=== PATIENT | male | born 1980 | race African-American/Black ===

== ENCOUNTER 2018-05-20 01:49 | Inpatient (IN) | payer OTHER ==
[~2018-05-20] VITALS: Ht 188 cm; Wt 125.2 kg
[~2018-05-20 01:49] MED LIST: AMOXICILLIN875 M1 PO; AMOXIL500 MG PO; BACTRIM DS TAB1 EACH PO; IBUPROFEN800 M1 PO; PREDNISONE 20MG20 MG PO
--- NOTE | 2018-05-20 02:07 | ED UPPER/LOWER EXTREMITY COMPL ---
History of Present Illness General Chief Complaint: Upper Extremity Problem Stated Complaint: "LT ARM WOUND CHECK,RT HAND SWELLENING" Source: patient Exam Limitations: no limitations Vital Signs & Intake/Output Vital Signs & Intake/Output Vital Signs Date Time Temp Pulse Resp B/P B/P Pulse O2 O2 Flow FiO2 Mean Ox Delivery Rate 05/20 0205 100.4 97 18 124/75 96 Room Air Allergies Coded Allergies: NO KNOWN ALLERGIES (09/09/13) Reconcile Medications Amoxicillin 875 MG TABLET 1 TAB PO BID ABSCESS Amoxicillin (Amoxil) 500 MG CAP 1 TAB PO TID INFECTION Ibuprofen 800 MG TABLET 1 TAB PO TID PRN PAIN /FEVER Prednisone 20 MG TABLET 1 TAB PO AD INFLAMMATION 3 TABS PO DAY 1-2 2 TABS PO DAY 3-5 1 TAB PO DAY 6-8 Sulfamethoxazole/Trimethoprim (Bactrim Ds Tablet) 800 MG-160 MG TABLET 1 TAB PO BID ABSCESS Triage Nurses Notes Reviewed? yes Onset: Gradual Duration: day(s):, getting worse Timing: recent history Severity: moderate Pain/Injury Location: Left: Forearm. Method of Injury: "bug bite" Modifying Factors: Worsens With: movement. Associated Symptoms: swelling, redness HPI: 29-year-old gentleman in prior good health presents with left arm swelling and redness. He states that approximately 4 days ago he suffered likely a spider bite on his left forearm. He noted an area of tenderness and redness and pain. This swelling progressed and he presented 1.5 days ago to this emergency Department. At that time a CT scan was done which revealed inflammation in the left forearm. An abscess was drained. He was evaluated by surgery. He was placed on Bactrim and amoxicillin. He notes over the past 1.5 days, the redness pain and swelling has gotten worse. He states when he left the emergency department the pain was below his elbow. Presently, the pain is above his elbow. He noted continued mild drainage from the open abscess. He notes that today he took a shower and the wick that was placed fell out. He notes no fever today. No nausea vomiting diarrhea. He has no shoulder pain. He is otherwise well. Past History Travel History Traveled to [place] past 21 day No Medical History Any Pertinent Medical History? see below for history Musculoskeletal: psoriasis Surgical History Surgical History: none Psychosocial History What is your primary language Pashto Family History Hx Contributory? No Review of Systems Review of Systems Constitutional: Reports: no symptoms. EENTM: Reports: no symptoms. Respiratory: Reports: no symptoms. Cardiovascular: Reports: no symptoms. Gastrointestinal/Abdominal: Reports: no symptoms. Genitourinary: Reports: no symptoms. Musculoskeletal: Reports: no symptoms. Skin: Reports: no symptoms. Neurological/Psychological: Reports: no symptoms. Hematologic/Endocrine: Reports: no symptoms. Immunological: Reports: no symptoms. All Other Systems: Reviewed and Negative Physical Exam Physical Exam General Appearance: well developed/nourished, mild distress Head: atraumatic Eyes: Bilateral: normal appearance. Ears, Nose, Throat: normal pharynx, normal ENT inspection Neck: normal inspection Cardiovascular/Respiratory: normal breath sounds Elbow Left: there is an open freely draining abscess in the left distal forearm in the region of Progress Differential Diagnosis: cellulitis, cellulitis, necrotizing fasciitis. Plan of Care: Orders Procedure Date/time Status Nothing by Mouth 05/20 B Active CBC WITHOUT DIFFERENTIAL 05/20 06 Active BASIC ELECTROLYTES PLUS BUN&CR 05/20 06 Active EKG 05/20 0313 Active Pathway - chart 05/20 0309 Active House Staff 05/20 0309 Active Intake & Output 05/20 0309 Active Code Status 05/20 0309 Active Patient Data 05/20 0237 Active Saline Lock 05/20 021 Active Misc Message 05/20 216 Active ED Holding Orders 05/20 216 Active Admit to inpatient 05/20 0216 Active Vital Signs 05/20 0216 Active Code Status 05/20 021 Complete BLOOD CULTURE 05/20 021 Active BLOOD CULTURE 05/20 020 Active COMPREHENSIVE METABOLIC PANEL 05/20 0209 Complete CBC WITHOUT DIFFERENTIAL 05/20 020 Complete VTE Mechanical Prophylaxis 05/20 UNK Active Current Medications Sig/Janes Start time Last Medication Dose Stop Time Status Admin Enoxaparin Sodium 40 MG DAILY 05/20 09 UNVr (Lovenox) Acetaminophen 650 MG Q6P PRN 05/20 0315 UNVr (Tylenol) Laboratory Tests 05/20/18 0240: Anion Gap 13, Estimated GFR > 60, BUN/Creatinine Ratio 10.0, Glucose 105 H, Calcium 8.7, Total Bilirubin 0.4, AST 33, ALT 35, Alkaline Phosphatase 77, Total Protein 7.1, Albumin 3.6, Globulin 3.5, Albumin/Globulin Ratio 1.0 L, CBC w Diff NO MAN DIFF REQ, RBC 5.95, MCV 75.9 L, MCH 24.9 L, MCHC 32.8 L, RDW 16.3 H, MPV 8.4, Gran % 79.5 H, Lymphocytes % 11.0 L, Monocytes % 6.4, Eosinophils % 2.6, Basophils % 0.5, Absolute Granulocytes 8.2 H, Absolute Lymphocytes 1.1 L, Absolute Monocytes 0.7 H, Absolute Eosinophils 0.3, Absolute Basophils 0 Microbiology 05/20 238 BLOOD: Blood Culture - RECD 05/20 230 BLOOD: Blood Culture - RECD Diagnostic Imaging: Viewed by Me: CT Scan. Discussed w/RAD: CT Scan. Radiology Impression: PATIENT: KRISTIN ARIAS PRESENT AGE: 37 PATIENT ACCOUNT NO: [id number] : 79 LOCATION: [facility] ORDERING PHYSICIAN: Aron GOFF SERVICE DATE: 05/18/18 EXAM TYPE: CAT - CT UPPER EXT W IV CONTRAST EXAMINATION: CT UPPER EXTREMITY WITH CONTRAST, LEFT CLINICAL INFORMATION: Left forearm abscess. Evaluate for necrotizing fasciitis. COMPARISON: None TECHNIQUE: Multidetector volumetric imaging was obtained to the left forearm following the intravenous administration of 95 mL Optiray 320 intravenous contrast. Multiplanar reformatted images in coronal and sagittal orientations were submitted. DLP: 412 mGy-cm FINDINGS: At the volar margin of the mid forearm, there is a focal region of skin thickening and cutaneous irregularity which may correspond to a laceration or ulceration. No discrete fluid collections identified in this region. There is more mild surrounding skin thickening throughout the forearm. Additionally, there is diffuse soft tissue swelling and subcutaneous edema throughout the volar aspect of the forearm from the elbow through the wrist. A thin layer of fascia fluid is present in the superficial fascia overlying the flexor musculature. Underlying musculature is normal in appearance. No deep fascial collections are appreciated. A small amount of superficial fascial fluid is also present overlying the extensor carpi ulnaris muscle at the dorsal/ulnar aspect of the forearm. No subcutaneous gas is identified. Musculature appears normal in attenuation. Tendons are unremarkable. No acute osseous findings. Mild osteophyte is present at the elbow. No erosions or osteolysis. IMPRESSION: Cellulitis and significant underlying inflammation/ edema at the volar aspect of the forearm. There is no subcutaneous gas. The inflammatory edema extends to level of the superficial fascia where there is a thin layer of fascial fluid. Necrotizing fasciitis can have this appearance, though it is not specific in the absence of subcutaneous gas. DICTATED BY: Zaid Garza MD DATE/TIME DICTATED:05/18/181753 MEAT MOLDER:SPENCER DATE/TIME TRANSCRIBED:05/18/181753 CONFIDENTIAL, DO NOT COPY WITHOUT APPROPRIATE AUTHORIZATION. <Electronically signed in Other Vendor System> SIGNED BY: Zaid Garza MD 05/18/181805, PATIENT: KRISTIN ARIAS PRESENT AGE: 37 PATIENT ACCOUNT NO: [id number] : 79 LOCATION: [facility] ORDERING PHYSICIAN: Uma Crow MD SERVICE DATE: 05/20/18 EXAM TYPE: CAT - CT UPPER EXT W IV CONTRAST EXAMINATION: CT UPPER EXTREMITY WITH CONTRAST, LEFT CLINICAL INFORMATION: Left arm spider bite. Abscess. COMPARISON: 05/18/2018 TECHNIQUE: Multidetector volumetric imaging of the left upper extremity was performed after administration of 95 mL of Optiray 320 IV contrast. Coronal and sagittal reformatted images were obtained and reviewed. DLP: 1037 mGy-cm FINDINGS: There is no acute fracture or cortical disruption. No erosive osseous changes. Alignment is maintained at the elbow. No significant arthritic changes. There is no elbow joint effusion. There is superficial edema which is most prominent at the volar aspect of the forearm no soft tissue gas. No focal fluid collection identified. There is skin thickening present. IMPRESSION: Superficial soft tissue edema with skin thickening suggesting cellulitis. No evidence of fluid collection. No underlying osseous abnormality. DICTATED BY: Umberto Sneed MD DATE/TIME DICTATED:05/20/18356 MEAT MOLDER:SPENCER DATE/TIME TRANSCRIBED:05/20/18356 CONFIDENTIAL, DO NOT COPY WITHOUT APPROPRIATE AUTHORIZATION. <Electronically signed in Other Vendor System> SIGNED BY: Umberto Sneed MD 05/20/18 0404 Departure Departure Disposition: STILL A PATIENT Condition: Stable Clinical Impression Primary Impression: Cellulitis Referrals: Hien Romero APRN (PCP/Family) Departure Forms: Customer Survey General Discharge Information Admission Note Spoke With: Kassidy Cabral MD Documentation of Exam: Documentation of any treatments & extenuating circumstances including Concerns Regarding Discharge (functional status, medication knowledge or non-compliance, living conditions, etc.) that warrant an admission rather than observation: pt with progression of left arm cellulitis/abscess despite 1 day of amox/ bactrim.... There does not appear to be any worsening abscess... the wound is freely draining... but the area of celluitis/induration has extended beyond his left elbow - a failure of outpatient antibiotics. Pt with history of MRSA... cultures from wound reveal staph aureus, sensitivities pending. Given history and progression of symptoms, will treat with vanco.
[2018-05-20 02:56] LABS: ABSOLUTE BASOPHIL COUNT 0 /CUMM (0.0-0.2); ABSOLUTE EOSINOPHIL COUNT 0.3 /CUMM (0.0-0.7); ABSOLUTE GRANULOCYTE CT 8.2 /CUMM (1.4-6.5); ABSOLUTE LYMPH COUNT 1.1 /CUMM (1.2-3.4); ABSOLUTE MONOCYTE COUNT 0.7 /CUMM (0.10-0.60); BASOPHIL % 0.5 % (0.0-2.0); EOSINOPHIL % 2.6 % (0-5); GRANULOCYTE % 79.5 % (42.2-75.2); HEMATOCRIT 45.2 % (42-52); MEAN CORPUSCULAR HGB 24.9 PG (27.0-31.0); MEAN CORPUSCULAR HGB CONC 32.8 G/DL (33.0-37.0); MEAN CORPUSCULAR VOLUME 75.9 FL (80.0-94.0); MEAN PLATELET VOLUME 8.4 FL (7.4-10.4); PLATELET COUNT 222 /CUMM (130-400); RBC DISTRIBUTION WIDTH 16.3 % (11.5-14.5); RED BLOOD CELL CT 5.95 /CUMM (4.70-6.10); WHITE BLOOD CELL COUNT 10.4 /CUMM (4.8-10.8)
--- NOTE | 2018-05-20 03:02 | History & Physical ---
Binu Burris 05/20/18 0301: General Information and HPI MD Statement: I have seen and personally examined KRISTIN ARIAS and documented this H&P. The patient is a 37 year old M who presented with a patient stated chief complaint of []. Source of Information: patient Exam Limitations: no limitations History of Present Illness: Patient is a 37 year old male with PMH significant for MRSA wound infection and Psoriasis, seen in the ED 4 days ago for left forearm cellulitis. 4 days ago, patient describes being out with his girlfirend when he noticed a spider/insect bite on his frank but did not see the culptrit. CT upper extremity performed at [place], showed skin thickening suggesting celluitits. Dr. Dwyer performed I & D of at beside and surgery team discharged him with Bactrim and Amoxicillin. After the drainage the patient reports feeling much better. After going home and taking a shower patient reports that the wound started draining again and he started feeling worse. He then developed the chills and noticed swelling of the opposite hand. This prompted him to return to the ER today. The erythema has now spread further up the arm. Along with chills he reports a decrease in appetite. He denies subjective fever. He describes thes story of how he became MRSA positive years ago after also getting bit by some spider/insect on the leg, scatching it, and the subsequent cellulitis. Allergies/Medications Allergies: Coded Allergies: NO KNOWN ALLERGIES (09/09/13) Home Med list Amoxicillin 875 MG TABLET 1 TAB PO BID ABSCESS Amoxicillin (Amoxil) 500 MG CAP 1 TAB PO TID INFECTION Ibuprofen 800 MG TABLET 1 TAB PO TID PRN PAIN /FEVER Prednisone 20 MG TABLET 1 TAB PO AD INFLAMMATION 3 TABS PO DAY 1-2 2 TABS PO DAY 3-5 1 TAB PO DAY 6-8 Sulfamethoxazole/Trimethoprim (Bactrim Ds Tablet) 800 MG-160 MG TABLET 1 TAB PO BID ABSCESS Past History Travel History Traveled to [place] past 21 day No Medical History Musculoskeletal: psoriasis SCOLIOSIS Surgical History Surgical History: none Past Family/Social History Psychosocial History ETOH Use: occasional use Illicit Drug Use: denies illicit drug use Review of Systems Review of Systems Constitutional: Reports: chills, malaise. Denies: fever. EENTM: Reports: no symptoms. Cardiovascular: Denies: chest pain, palpitations. Respiratory: Denies: cough, short of breath. GI: Denies: diarrhea, nausea, vomiting. Genitourinary: Denies: dysuria. Musculoskeletal: Denies: muscle pain. Skin: Reports: erythema. Neurological/Psychological: Reports: no symptoms. Hematologic/Endocrine: Reports: no symptoms. Immunologic/Allergic: Reports: no symptoms. All Other Systems: Reviewed and Negative Exam & Diagnostic Data Last 24 Hrs of Vital Signs/I&O Vital Signs Date Time Temp Pulse Resp B/P B/P Pulse O2 O2 Flow FiO2 Mean Ox Delivery Rate 05/20 0707 97.4 98 20 102/54 95 Room Air 05/20 0553 97.4 98 20 102/54 95 Room Air 05/20 0415 99.7 95 18 128/72 96 Room Air 05/20 0205 100.4 97 18 124/75 96 Room Air Intake & Output 05/20 1600 05/20 0800 05/20 0000 Intake Total 350 Output Total Balance 350 Intake, IV 350 Intake, Oral 0 Patient 340 lb Weight Weight Reported by Patient Measurement Method Physical Exam General Appearance Alert, Oriented X3, Cooperative Skin Large draining abscess on Left Foreaarm, Significant Erythema of Left arm Skin Temp/Moisture Exam: Warm/Dry HEENT Atraumatic, PERRLA, EOMI Neck Supple Lymphatic Axillary nl, Cervical nl Cardiovascular Regular Rate, Normal S1, Normal S2 Abdomen Soft, No Tenderness, No Masses Neurological Normal Speech Extremities Normal Pulses Last 24 Hrs of Labs/Gerard: Laboratory Tests 05/20/18 0555: Anion Gap 9, Estimated GFR > 60, BUN/Creatinine Ratio 9.1, CBC w Diff NO MAN DIFF REQ, RBC 5.61, MCV 75.8 L, MCH 25.0 L, MCHC 33.0, RDW 16.6 H, MPV 8.4, Gran % 81.7 H, Lymphocytes % 9.9 L, Monocytes % 6.2, Eosinophils % 2.1, Basophils % 0.1, Absolute Granulocytes 8.6 H, Absolute Lymphocytes 1.0 L, Absolute Monocytes 0.7 H, Absolute Eosinophils 0.2, Absolute Basophils 0 05/20/18 0240: Anion Gap 13, Estimated GFR > 60, BUN/Creatinine Ratio 10.0, Glucose 105 H, Calcium 8.7, Total Bilirubin 0.4, AST 33, ALT 35, Alkaline Phosphatase 77, Total Protein 7.1, Albumin 3.6, Globulin 3.5, Albumin/Globulin Ratio 1.0 L, CBC w Diff NO MAN DIFF REQ, RBC 5.95, MCV 75.9 L, MCH 24.9 L, MCHC 32.8 L, RDW 16.3 H, MPV 8.4, Gran % 79.5 H, Lymphocytes % 11.0 L, Monocytes % 6.4, Eosinophils % 2.6, Basophils % 0.5, Absolute Granulocytes 8.2 H, Absolute Lymphocytes 1.1 L, Absolute Monocytes 0.7 H, Absolute Eosinophils 0.3, Absolute Basophils 0 Microbiology 05/20 238 BLOOD: Blood Culture - RECD 05/20 230 BLOOD: Blood Culture - RECD Assessment/Plan Assessment: IMPRESSION: Superficial soft tissue edema with skin thickening suggesting cellulitis. No evidence of fluid collection. No underlying osseous abnormality. Vitals in admission were temperature 100.4, heart rate 97, respiratory rate 18, BP 120/74 and O2 sats on 96% on room air. CBC and BMP were unremarkable. Problem list: 1. Cellulitis of left forearm 2. Hx of MRSA infection - Admit the pt to [facility] - IV vancomycin and Clindamycin - F/U WOund culture - ID consult - Surgery Consult - Wound Care - Full Code As Ranked By This Provider Problem List: 1. Cellulitis 2. Abscess 3. Tobacco abuse counseling Core Measures/Misc (07/27) Acute Coronary Syndrome ACS Diagnosis: No Congestive Heart Failure Congestive Heart Failure Diagnosis No Cerebrovascular Accident CVA/TIA Diagnosis: No VTE (View Protocol) VTE Risk Factors Smoker No Mechanical VTE Prophylaxis d/t N/A MechProphylax Ordered No VTE Pharm Prophylaxis d/t NA PharmProphylax ordered Sepsis (View protocol) Sepsis Present: No If YES complete Sepsis Event Note If YES complete Sepsis Event Note Kassidy Cabral MD 05/20/18 0305: Core Measures/Misc (07/27) Sepsis (View protocol) If YES complete Sepsis Event Note If YES complete Sepsis Event Note Attending MD Review Statement Attending Statement Attending MD Statement: examined this patient, discuss w/resident/PA/SWITCHBOARD AND CONTROL ROOM OPERATOR, agreed w/resident/PA/SWITCHBOARD AND CONTROL ROOM OPERATOR, reviewed EMR data (avail) Attending Assessment/Plan: 37M no PMH, seen here 2 days ago for left forearm cellulitis, CT arm showing abscess, evaluated by surgery who did not think it was necrotizing fasciitis, abscess drained at bedside by Dr. Dwyer, discharged home on Augmentin and Bactrim. The erythema and induration has now spread to above the elbow. There is no fluctuance or crepitus. Afebrile here, stable vitals. Wound culture from 05/18 growing S.aureus, sensitivities pending. 1. Staph aureus abscess and cellulitis of the left forearm 2. Failure of outpatient treatment Plan - Admit to general medicine - Vancomycin and Clindamycin - Follow wound culture, repeat blood culture - Surgery and ID consults - Arm elevation - Wound care - CT arm to r/o necrotizing fasciitis - No opioids per patient request, only Tylenol/Ibuprofen for pain control - DVT PPx Mignon SUN,Uma 05/20/18 0335: Core Measures/Misc (07/27) Sepsis (View protocol) If YES complete Sepsis Event Note If YES complete Sepsis Event Note Resident Review Statement Resident Statement: examined this patient, discussed with internal affairs investigator, agreed with internal affairs investigator, reviewed EMR data (avail), discussed with nursing, reviewed images Other Findings: Mr. Arias is a 37-year-old gentleman with Hx of Psoriasis and MRSA wound infection in the past presents with worsening left arm swelling and discharge. Patient had an insect/spider bite 4 days ago, He was seen in the ED on 05/[address] scan was done showing Cellulitis and significant underlying inflammation/edema. He was seen by surgery and the abscess was drained and he was discharged on Bactrim and amoxicillin. He states that he was feeling better but after taking the shower today, the Iron from the wound fell of and it started draining purulent discharge. Swelling and erythema also got worse and which got him concerned and he came back to the ER. Reports chills but denies any fever. Vitals in admission were temperature 100.4, heart rate 97, respiratory rate 18, BP 120/74 and O2 sats on 96% on room air. CBC and BMP were unremarkable. Problem list; 1. Cellulitis and abscess of left arm, failed outpatient treatment 2. History of MRSA infection - Admit the patient to general medicine floor - Start the patient on IV vancomycin and clindamycin.(Hx of MRSA and concerns for Necrotizing Fascitis) - Follow up final wound cultures; positive for staph aureus with sensitivities pending. - Follow blood cultures - ID consult - Surgical consult - CT To rule out necrotizing fasciitis DVT prophylaxis; Alps and subcutaneous Lovenox Patient is full code
--- NOTE | 2018-05-20 04:04 | CT SCAN REPORT ---
EXAMINATION: CT UPPER EXTREMITY WITH CONTRAST, LEFT CLINICAL INFORMATION: Left arm spider bite. Abscess. COMPARISON: 05/18/2018 TECHNIQUE: Multidetector volumetric imaging of the left upper extremity was performed after administration of 95 mL of Optiray 320 IV contrast. Coronal and sagittal reformatted images were obtained and reviewed. DLP: 1037 mGy-cm FINDINGS: There is no acute fracture or cortical disruption. No erosive osseous changes. Alignment is maintained at the elbow. No significant arthritic changes. There is no elbow joint effusion. There is superficial edema which is most prominent at the volar aspect of the forearm no soft tissue gas. No focal fluid collection identified. There is skin thickening present. IMPRESSION: Superficial soft tissue edema with skin thickening suggesting cellulitis. No evidence of fluid collection. No underlying osseous abnormality.
[2018-05-20 06:09] LABS: ABSOLUTE BASOPHIL COUNT 0 /CUMM (0.0-0.2); ABSOLUTE EOSINOPHIL COUNT 0.2 /CUMM (0.0-0.7); ABSOLUTE GRANULOCYTE CT 8.6 /CUMM (1.4-6.5); ABSOLUTE MONOCYTE COUNT 0.7 /CUMM (0.10-0.60); BASOPHIL % 0.1 % (0.0-2.0); EOSINOPHIL % 2.1 % (0-5); GRANULOCYTE % 81.7 % (42.2-75.2); HEMATOCRIT 42.5 % (42-52); MEAN CORPUSCULAR VOLUME 75.8 FL (80.0-94.0); MEAN PLATELET VOLUME 8.4 FL (7.4-10.4); PLATELET COUNT 222 /CUMM (130-400); RBC DISTRIBUTION WIDTH 16.6 % (11.5-14.5); RED BLOOD CELL CT 5.61 /CUMM (4.70-6.10); WHITE BLOOD CELL COUNT 10.6 /CUMM (4.8-10.8)
[2018-05-20 07:07] VITALS: BP 102/54
--- NOTE | 2018-05-20 09:30 | PN- Housestaff ---
Kemal Ramirez 05/20/18 0930: Subjective Follow-up For: L arm cellulitis Review of Systems Constitutional: Reports: see HPI. Objective Last 24 Hrs of Vital Signs/I&O Vital Signs Date Time Temp Pulse Resp B/P B/P Pulse O2 O2 Flow FiO2 Mean Ox Delivery Rate 05/20 1058 98.0 92 18 112/70 96 Room Air 05/20 0707 97.4 98 20 102/54 95 Room Air 05/20 0553 97.4 98 20 102/54 95 Room Air 05/20 0415 99.7 95 18 128/72 96 Room Air 05/20 0205 100.4 97 18 124/75 96 Room Air Intake & Output 05/20 1600 05/20 0800 05/20 0000 Intake Total 360 350 Output Total Balance 360 350 Intake, IV 350 Intake, Oral 360 0 Patient 340 lb Weight Weight Reported by Patient Measurement Method Physical Exam General Appearance: Alert, Oriented X3, Cooperative, No Acute Distress Skin: erythematous, weeping lesion L forearm s/p I+D Skin Temp/Moisture Exam: Warm/Dry Cardiovascular: Regular Rate, Normal S1, Normal S2 Lungs: Clear to Auscultation, Normal Air Movement Abdomen: Soft, No Tenderness Neurological: Sensation Intact Extremities: No Edema, tenderness L forearm extending to medial aspect L bicep Current Medications: Current Medications Sig/Janes Start time Last Medication Dose Route Stop Time Status Admin Acetaminophen 650 MG Q6P PRN 05/20 0315 AC PO Clindamycin 600 MG Q8H 05/20 1300 CAN Dextrose/Water 50 ML IV Clindamycin 600 MG IQ8 05/20 0445 DC 05/20 Dextrose/Water 50 ML IV 0525 Enoxaparin Sodium 0 .STK-MED ONE 05/20 0921 DC SC Enoxaparin Sodium 40 MG DAILY 05/20 0900 AC 05/20 SC 0922 Morphine Sulfate 2 MG Q4P PRN 05/20 031 DC IV Oxycodone/ 1 TAB Q6P PRN 05/20 031 DC Acetaminophen PO Vancomycin HCl 2,000 MG Q12H 05/20 1530 AC Sodium Chloride 500 ML IV Vancomycin HCl 0 .STK-MED ONE 05/20 0256 DC .ROUTE Vancomycin HCl 1,000 MG ONCE ONE 05/20 0215 DC 05/20 Sodium Chloride 250 ML IV 05/20 0314 0330 Last 24 Hrs of Lab/Gerard Results Last 24 Hrs of Labs/Mics: Laboratory Tests 05/20/18 0555: Anion Gap 9, Estimated GFR > 60, BUN/Creatinine Ratio 9.1, CBC w Diff NO MAN DIFF REQ, RBC 5.61, MCV 75.8 L, MCH 25.0 L, MCHC 33.0, RDW 16.6 H, MPV 8.4, Gran % 81.7 H, Lymphocytes % 9.9 L, Monocytes % 6.2, Eosinophils % 2.1, Basophils % 0.1, Absolute Granulocytes 8.6 H, Absolute Lymphocytes 1.0 L, Absolute Monocytes 0.7 H, Absolute Eosinophils 0.2, Absolute Basophils 0 05/20/18 0240: Anion Gap 13, Estimated GFR > 60, BUN/Creatinine Ratio 10.0, Glucose 105 H, Calcium 8.7, Total Bilirubin 0.4, AST 33, ALT 35, Alkaline Phosphatase 77, Total Protein 7.1, Albumin 3.6, Globulin 3.5, Albumin/Globulin Ratio 1.0 L, CBC w Diff NO MAN DIFF REQ, RBC 5.95, MCV 75.9 L, MCH 24.9 L, MCHC 32.8 L, RDW 16.3 H, MPV 8.4, Gran % 79.5 H, Lymphocytes % 11.0 L, Monocytes % 6.4, Eosinophils % 2.6, Basophils % 0.5, Absolute Granulocytes 8.2 H, Absolute Lymphocytes 1.1 L, Absolute Monocytes 0.7 H, Absolute Eosinophils 0.3, Absolute Basophils 0 Microbiology 05/208 BLOOD: Blood Culture - RECD 05/20 230 BLOOD: Blood Culture - RECD Assessment/Plan Assessment: Mr. Kearney is a 37-year-old male with the past medical history of a MRSA wound infection, who present presented with left forearm pain, erythema, drainage status post incision and drainage on May 18. Patient admitted and treated for cellulitis, with wound cultures positive for MRSA #Left forearm cellulitis clindamycin, Bactrim Upon discharge, will likely prescribe Bactrim, 2 double strength tabs every 12 present. Surgery consult appreciated, will follow up on recommendations. osteomyelitis DVT prophylaxis Tolerating regular diet IV access Dispositionto home Problem List: 1. Cellulitis Pain Ratin Pain Location: Left arm Pain Goal: Pain 4 or less Pain Plan: Pain pathway Tomorrow's Labs & Rationales: NA Zhang King 05/20/18 1210: Attending MD Review Statement Attending Statement Attending MD Statement: examined this patient, discuss w/resident/PA/HOME HEALTH TRAVEL OT, agreed w/resident/PA/HOME HEALTH TRAVEL OT, discussed with family, reviewed EMR data (avail), discussed with nursing, discussed with case mgmt, reviewed images, amended to note Attending Assessment/Plan: Patient with left arm pain. He is admitted here with impression of left upper extremity cellulitis failed outpatient antibitoics. He is started ion iv vancomycin and general surgery consulted. CT without evidence of necrotizing fascitis. Follow wound cultures and titrate abx as per C/S.
[2018-05-20 15:07] VITALS: BP 136/78
[2018-05-20 21:58] VITALS: BP 124/70
[2018-05-21 05:51] VITALS: BP 124/78
--- NOTE | 2018-05-21 07:09 | PN- Housestaff ---
See Addendum Subjective Follow-up For: L arm Cellulitis Subjective: Patient seen and examined at bedside. Patient states that the pain is improved significantly, states that there is still some that is in the bicep although is remitting back down towards forearm. Patient states that the wound has not a week at all recently, states that the wound is been wrapped up. Patient denies any fevers or systemic signs. Denies chest pain/shortness of breath/abdominal pain/urinary symptoms/lower extremity edema. Patient states that he would like to be discharged today so we can take care of things at home. Patient states that he will have close follow-up with his primary. Review of Systems Constitutional: Reports: see HPI. Objective Last 24 Hrs of Vital Signs/I&O Vital Signs Date Time Temp Pulse Resp B/P B/P Pulse O2 O2 Flow FiO2 Mean Ox Delivery Rate 05/21 0551 98.4 72 20 124/78 95 Room Air 05/20 2158 97.6 77 20 124/70 97 Room Air 05/20 1600 Room Air 05/20 1507 97.4 89 16 136/78 96 05/20 1058 98.0 92 18 112/70 96 Room Air Intake & Output 05/21 1600 05/21 0800 05/21 0000 Intake Total 120 240 Output Total Balance 120 240 Intake, Oral 120 240 Patient 276 lb Weight Physical Exam General Appearance: Alert, Oriented X3, Cooperative, No Acute Distress Skin: L forearm wound anterior aspect, dressing clean dry intact Skin Temp/Moisture Exam: Warm/Dry Cardiovascular: Regular Rate, Normal S1, Normal S2 Lungs: Clear to Auscultation, Normal Air Movement Abdomen: Soft, No Tenderness Neurological: Sensation Intact Extremities: Normal Pulses, TTP L bicep medial aspect, left forearm Current Medications: Current Medications Sig/Janes Start time Last Medication Dose Route Stop Time Status Admin Acetaminophen 650 MG Q6P PRN 05/20 0315 AC PO Clindamycin 600 MG Q8H 05/20 1300 CAN Dextrose/Water 50 ML IV Enoxaparin Sodium 40 MG DAILY 05/20 0900 AC 05/20 SC 0922 Nicotine 2 MG Q4 HRS NEEDED PRN 05/20 1515 AC PO Nicotine 14 MG DAILY 05/20 1510 AC 05/21 TOP 0944 Vancomycin HCl 2,000 MG Q12H 05/21 0600 AC 05/21 Sodium Chloride 500 ML IV 0537 Vancomycin HCl 2,000 MG Q12H 05/20 1530 DC 05/20 Sodium Chloride 500 ML IV 1724 Assessment/Plan Assessment: Mr. Kearney is a 37-year-old male with the past medical history of a MRSA wound infection, who present presented with left forearm pain, erythema, drainage status post incision and drainage on May 18. Patient admitted and treated for cellulitis, with wound cultures positive for MRSA #Left forearm cellulitis - improved clinically clindamycin, Bactrim Upon discharge, will be prescribed Bactrim, 2 double strength tabs every 12 osteomyelitis -Pt to be discharged today, will complete PO antibiotic course and advised to return with strict return precautions DVT prophylaxis Tolerating regular diet IV access Dispositionto home today Problem List: 1. Cellulitis Pain Ratin Pain Location: L arm Pain Goal: Remain pain free Pain Plan: na Tomorrow's Labs & Rationales: na Discharge Plan Discharge Disposition: home Stable for Discharge? Yes
[2018-05-21] MEDS ORDERED: BACTRIM DS TAB1 EACH PO ×3 (10:09→10:14)
--- NOTE | 2018-05-21 10:10 | Patient Discharge Instructions ---
Discharge Instructions General Discharge Information Special Instructions: - Please follow up with your surgeon Dr. Burgess within 1-2 weeks of discharge. - Please follow up with your primary care physician within 1-2 weeks of discharge. Inform your primary care physician of this admission to [facility]. - Continue your current medications per discharge instructions. - Please watch for these problems: Fever, Chills, Nausea, Vomiting, Shortness of Breath, Productive Cough, Chest Pain/Discomfort, Abdominal Pain, Active Bleeding or Bloody urine/stool. Diet Continue normal diet: Yes Activity Full Activity/No Limits: Yes Acute Coronary Syndrome Inclusion Criteria At DC or during hospital stay patient has or had the following: ACS DIAGNOSIS No Discharge Core Measures Meds if any: Prescribed or Continued at Discharge Meds if any: NOT Prescribed or Continued at Discharge Congestive Heart Failure Inclusion Criteria At DC or during hospital stay patient has or had the following: CHF DIAGNOSIS No Discharge Core Measures Meds if any: Prescribed or Continued at Discharge Meds if any: NOT Prescribed or Continued at Discharge Cerebrovascular accident Inclusion Criteria At DC or during hospital stay patient has or had the following: CVA/TIA Diagnosis No Discharge Core Measures Meds if any: Prescribed or Continued at Discharge Meds if any: NOT Prescribed or Continued at Discharge Venous thromboembolism Inclusion Criteria VTE Diagnosis No VTE Type NONE VTE Confirmed by (Test) NONE Discharge Core Measures - Per Current guidelines, there needs to be overlap - treatment for the first 5 days of Warfarin therapy. - If discharged on Warfarin prior to 5 days of - overlap therapy, the patient will need to be - assessed for post discharge needs including - *Post discharge parental anticoagulation - *Warfarin and/or parental anticoagulation education - *Follow up date to check INR post discharge At least 5 days overlap therapy as Inpatient No Meds if any: Prescribed or Continued at Discharge Note: Overlap Therapy is Warfarin and Anticoagulant Meds if any: NOT Prescribed or Continued at Discharge
--- NOTE | 2018-05-21 11:25 | Discharge Summary ---
Visit Information Visit Dates Admission Date: 05/20/18 Discharge Date: 05/21/18 Hospital Course Course Attending Physician: Zhang King MD Primary Care Physician: [facility] Course: Mr. Kearney is a 37-year-old gentleman with Hx of Psoriasis and MRSA wound infection in the past presents with worsening left arm swelling and discharge. Patient had an insect/spider bite 4 days ago, He was seen in the ED on 05/[address] scan was done showing Cellulitis and significant underlying inflammation/edema. He was seen by surgery and the abscess was drained and he was discharged on Bactrim and amoxicillin. He states that he was feeling better but after taking shower today, the Iron from the wound fell of and it started draining purulent discharge. Swelling and erythema also got worse and which got him concerned and he came back to the ER. Reports chills but denies any fever. Vitals in admission were temperature 100.4, heart rate 97, respiratory rate 18, BP 120/74 and O2 sats on 96% on room air. CBC and BMP were unremarkable. Patient was admitted to general medicine. Surgery was consulted under the concern that this could be necrotizing fasciitis. Patient went for an left upper extremity CT, which showed no osteomyelitis and no evidence of fluid collection. Patient's wound cultures from previous I&D showed MRSA, and patient was placed on isolation, clindamycin was discontinued, and patient was continued on IV vancomycin. Patient had significant clinical improvement the next day, decreased pain and erythema, decreased swelling. Patient remained afebrile and without leukocytosis, asked about early discharge as he is self-pay, and was concerned about taking care of his home. Blood cultures had no growth to date. Patient was switched to p.o. Bactrim, 2 tabs double strength due to patient size , and discharged to complete his oral antibiotic course for 4 days with strict return precautions. Patient states he will follow-up with his primary, and will address his wound with dressing changes at home. Allergies: Coded Allergies: NO KNOWN ALLERGIES (09/09/13) Significant Procedures: Upper extremity CT of the left arm on 05/20/18: CT UPPER EXTREMITY WITH CONTRAST, LEFT CLINICAL INFORMATION: Left arm spider bite. Abscess. COMPARISON: 05/18/2018 TECHNIQUE: Multidetector volumetric imaging of the left upper extremity was performed after administration of 95 mL of Optiray 320 IV contrast. Coronal and sagittal reformatted images were obtained and reviewed. DLP: 1037 mGy-cm FINDINGS: There is no acute fracture or cortical disruption. No erosive osseous changes. Alignment is maintained at the elbow. No significant arthritic changes. There is no elbow joint effusion. There is superficial edema which is most prominent at the volar aspect of the forearm no soft tissue gas. No focal fluid collection identified. There is skin thickening present. IMPRESSION: Superficial soft tissue edema with skin thickening suggesting cellulitis. No evidence of fluid collection. No underlying osseous abnormality. Pertinent Lab Results: Wound culture from May 18, 2018: Methicillin-resistant staph aureus, sensitive to tetracyclines, trimethoprim sulfamethoxazole, clindamycin, vancomycin. Disposition Summary Disposition Principal Diagnosis: MRSA cellulitis left lower extremity Additional Diagnosis: Tobacco abuse Discharge Disposition: home or self care Discharge Instructions General Discharge Information Code Status: Full Code Patient's Diet: As tolerated Patient's Activity: As tolerated Follow-Up Instructions/Appts: - Please follow up with your primary care physician within 1-2 weeks of discharge. Inform your primary care physician of this admission to [facility]. - Continue your current medications per discharge instructions. - Please watch for these problems: Fever, Chills, Nausea, Vomiting, Shortness of Breath, Productive Cough, Chest Pain/Discomfort, Abdominal Pain, Active Bleeding or Bloody urine/stool. Medications at Discharge Discharge Medications: Stop taking the following medications: Amoxicillin (Amoxil) 500 MG CAP ORAL THREE TIMES DAILY Qty = 20 Prednisone (Prednisone) 20 MG TABLET ORAL As Directed Qty = 15 Amoxicillin (Amoxicillin) 875 MG TABLET ORAL TWICE DAILY Qty = 20 Sulfamethoxazole/Trimethoprim (Bactrim Ds Tablet) 800 MG-160 MG TABLET ORAL TWICE DAILY Qty = 20 Continue taking these medications: Ibuprofen (Ibuprofen) 800 MG TABLET 1 Tablet ORAL THREE TIMES DAILY as needed for PAIN /FEVER Qty = 30 Start taking the following new medications: Sulfamethoxazole/Trimethoprim (Bactrim Ds Tablet) 800 MG-160 MG TABLET 2 Tablet ORAL TWICE DAILY Qty = 32 No Refills Instructions: . Comments: NOT GIVEN Copies To: Hien Romero APRN Attending Review Statement Documenting Attending: Zhang King MD Other Findings: Patient with left arm pain. He is admitted here with impression of left upper extremity cellulitis failed outpatient antibitoics. He is on iv vancomycin. CT without evidence of necrotizing fascitis. Wound cultures grew MRSA. Patient condition dramatically improved and he is stable for discharge on Po abx and PO pain meds. Follow up with PCP and surgery Dr Dwyer in 1-2 week of discharge.
== END 2018-05-21 11:09 | DRG 383 ==
LOC: ERH 01:49 → ERHI 02:50 → ENRESERV 12:35 → ENTRNSPT 13:25 → EDTRNSPTSTS 13:52 → EDTRNSPT 13:52 → 2NA 13:58 → CMPTRNSPT 14:07 → 2NA 21:02 → ENPENDDIS 05-21 10:23 → 2NA 05-21 11:09
PROVIDERS: Internal Medicine; Pediatrics
DX: L03.114 Cellulitis of left upper limb (principal); F17.210 Nicotine dependence, cigarettes, uncomplicated; L02.412 Cutaneous abscess of left axilla; B95.62 Methicillin resistant Staphylococcus aureus infection as the cause of diseases classified elsewhere
CPT/HCPCS: 2NAP; 82436; 87040; 93005; 93010; J1650; J3370; J7040